=== PATIENT | male | born 1990 | race Two or more races ===

== ENCOUNTER 2021-08-20 01:15 | Emergency (ER) | payer OTHER ==
[~2021-08-20] VITALS: Ht 182.9 cm; Wt 93.0 kg
[2021-08-20 01:36] VITALS: BP 116/64
[2021-08-20] MEDS ORDERED: BALANCED SALT IRRIG SOLN 15ML IR ONE (03:00)
[2021-08-20] MEDS ORDERED: TETRACAINE 0.5% OPHTH DROPS 4ML RIGHTEYE ONE (03:00)
[2021-08-20] MEDS ORDERED: FLUORESCEIN SODIUM 1MG/STRIP RIGHTEYE ONE (03:00)
[2021-08-20] MEDS ORDERED: ERYT1OIN6 RIGHTEYE (05:24)
[2021-08-20] MEDS ORDERED: NAPR-681 PO (05:24)
[2021-08-20] MEDS ORDERED: GENTAMICIN 0.3% OPHTH DROPS 5ML RIGHTEYE SCH (06:00)
== END 2021-08-20 06:00 | disposition home or self-care (01) ==
LOC: ER 01:15
DX: T15.01XA Foreign body in cornea, right eye, initial encounter (principal); X58.XXXA Exposure to other specified factors, initial encounter; Y93.89 Activity, other specified; Y92.89 Other specified places as the place of occurrence of the external cause; Y99.0 Civilian activity done for income or pay
CPT/HCPCS: 99283